=== PATIENT | female | born 1955 | race Caucasian/White ===

== ENCOUNTER 2019-02-06 13:58 | Outpatient (CLI) | payer OTHER ==
--- NOTE | 2019-02-06 15:02 | BD ---
FEXAM: DEXA bone density examination HISTORY: 63-year-old postmenopausal female for screening age-related osteoporosis COMPARISON: None FINDINGS: L1--bone mineral density 0.754 g/sq cm; T score -2.1 L2--bone mineral density 0.779 g/sq cm; T score -2.3 L3--bone mineral density 0.774 g/sq cm; T score -2.8 L4--bone mineral density 0.763 g/sq cm; T score -2.7 Total L1-L4--bone mineral density 0.767 g/sq cm; T score -2.5 Z score 0.8 Left femoral neck--bone mineral density0.541; T score -2.8 Total proximal left femur--bone mineral density 0.853; T score -0.7 Z score 0.4 IMPRESSION: Bone mineral density of the lumbar spine and femoral neck are both osteoporotic. Fracture risk is hig h.
--- NOTE | 2019-02-11 18:23 | MMO ---
Bilateral MAMMO Bilat Screen [facility]. CLINICAL HISTORY: Patient is 63 years old and is seen for screening. The patient has the following family history of breast cancer: maternal aunt. The patient has no personal history of cancer. VIEWS: The views performed were: bilateral craniocaudal with tomosynthesis and bilateral mediolateral oblique with tomosynthesis. FILMS COMPARED: The present examination has been compared to prior imaging studies performed at [facility] on 09/03/2002, 06/23/2012 and 07/29/2015. MAMMOGRAM FINDINGS: There are scattered fibroglandular densities. There are no suspicious masses, suspicious calcifications, or new areas of architectural distortion. IMPRESSION: THERE IS NO MAMMOGRAPHIC EVIDENCE OF MALIGNANCY. A ROUTINE FOLLOW-UP MAMMOGRAM IN 1 YEAR IS RECOMMENDED. THE RESULTS OF THIS EXAM WERE SENT TO THE PATIENT. ACR BI-RADS Category 1 - Negative MAMMOGRAPHY NOTE: 1. A negative mammogram report should not delay a biopsy if a dominant of clinically suspicious mass is present. 2. Approximately 10% to 15% of breast cancers are not detected by mammography. 3. Adenosis and dense breasts may obscure an underlying neoplasm.
== END 2019-02-06 13:59 | disposition home or self-care (01) ==
LOC: BICMAMMO 13:58
PROVIDERS: ATTEND Family Medicine
DX: Z12.31 Encounter for screening mammogram for malignant neoplasm of breast (principal); E55.9 Vitamin D deficiency, unspecified; M81.0 Age-related osteoporosis without current pathological fracture
CPT/HCPCS: 77063; 77067; 77080

== ENCOUNTER 2020-09-19 09:44 | Outpatient (CLI) | payer MEDICARE ==
[~2020-09-19 09:44] MED LIST: Magnevist 469MG/ML 20 ML VIAL ONE
[2020-09-19 10:36] LABS: Estimated GFR-MDRD - POC Greater than 90
--- NOTE | 2020-09-19 11:47 | MRI ---
MRI BRAIN WITH AND WITHOUT CONTRAST: DATE: 09/19/2020 HISTORY: 64-year-old female with seizure disorder. TECHNIQUE: Multiplanar, multisequence MRI of the brain obtained pre and post IV injection of gadolinium based co ntrast agent. FINDINGS: The ventricles are normal in size and configuration. There is no midline shift or any other evidence of mass effect. There is no extra-axial fluid collection. There is no intra-axial signal abnormality, abnormal enhancement, mass, recent hemorrhage, or restricted diffusion. There is no evid ence of hippocampal signal abnormality or asymmetry. There is an incidental finding of an approximately 1.3 x 0.7 x 0.5 cm meningioma along the left parietal convexity without significant mas s effect or adjacent vasogenic edema. IMPRESSION: 1) incidental finding of a small left parietal meningioma. 2) otherwise negative
== END 2020-09-19 09:45 | disposition home or self-care (01) ==
LOC: BICMRI 09:44
PROVIDERS: ATTEND Psychiatry & Neurology Neurology
DX: G40.909 Epilepsy, unspecified, not intractable, without status epilepticus (principal); D32.0 Benign neoplasm of cerebral meninges
CPT/HCPCS: 70553; 82565; A9579

== ENCOUNTER 2021-10-18 10:41 | Outpatient (CLI) | payer MEDICARE | END 2021-10-18 10:42 | disposition home or self-care (01) | LOC: BICMAMMO 10:41 | PROVIDERS: ATTEND Family Medicine | DX: Z12.31 Encounter for screening mammogram for malignant neoplasm of breast (principal); Z80.3 Family history of malignant neoplasm of breast | CPT/HCPCS: 77063; 77067 ==

== ENCOUNTER 2021-10-25 08:55 | Outpatient (CLI) | payer MEDICARE | END 2021-10-25 08:56 | disposition home or self-care (01) | LOC: BICMAMMO 08:55 | PROVIDERS: ATTEND Family Medicine | DX: R92.8 Other abnormal and inconclusive findings on diagnostic imaging of breast (principal) | CPT/HCPCS: 76642; 77065; G0279 ==

== ENCOUNTER 2022-09-10 15:18 | Outpatient (CLI) | payer MEDICARE | END 2022-09-10 15:19 | disposition home or self-care (01) | LOC: BICMAMMO 15:18 | PROVIDERS: ATTEND Family Medicine | DX: M81.0 Age-related osteoporosis without current pathological fracture (principal) | CPT/HCPCS: 77080 ==

== ENCOUNTER 2023-07-12 14:38 | Outpatient (CLI) | payer MEDICARE | END 2023-07-12 14:39 | disposition home or self-care (01) | LOC: BICMAMMO 14:38 | PROVIDERS: ATTEND Nurse Practitioner Family | DX: Z12.31 Encounter for screening mammogram for malignant neoplasm of breast (principal); Z80.3 Family history of malignant neoplasm of breast | CPT/HCPCS: 77063; 77067 ==

== ENCOUNTER 2024-12-22 12:35 | Outpatient (CLI) | payer MEDICARE | END 2024-12-22 12:36 | disposition home or self-care (01) | LOC: BICMRI 12:35 | PROVIDERS: ATTEND Family Medicine | DX: G40.909 Epilepsy, unspecified, not intractable, without status epilepticus (principal); G93.89 Other specified disorders of brain; R90.82 White matter disease, unspecified | CPT/HCPCS: 70551 ==

== ENCOUNTER 2025-07-27 13:56 | Outpatient (CLI) | payer MEDICARE | END 2025-07-27 13:57 | disposition home or self-care (01) | LOC: BICMAMMO 13:56 | PROVIDERS: ATTEND Family Medicine | DX: Z12.31 Encounter for screening mammogram for malignant neoplasm of breast (principal); M81.0 Age-related osteoporosis without current pathological fracture; Z80.3 Family history of malignant neoplasm of breast | CPT/HCPCS: 77063; 77067; 77080 ==